=== PATIENT | male | born 1990 | race Caucasian/White ===

== ENCOUNTER 2021-04-08 12:30 | Emergency (ER) | payer SELFPAY ==
[~2021-04-08] VITALS: Ht 165.1 cm; Wt 73.9 kg
[2021-04-08 12:31] VITALS: BP 130/90
--- NOTE | 2021-04-08 12:40 | NUR ---
Pt ambulated to bed 4.
--- NOTE | 2021-04-08 12:46 | NUR ---
30 Y/O MALE C/O DISCOMFORT TO LEFT POSTERIOR THIGH X10 DAYS. PT STATES HE HAD THIS CYST FOR SEVERAL MONTHS BUT TODAY IS INCREASINGLY CAUSING DISCOMFORT WHILE WORKING OR APPLYING PRESSURE TO AREA. AREA IS RED, EDEMATOUS, WARM TO TOUCH, NO NOTED DISCHARGE. DENIES PAIN. DENIES TRAUMA OR INJURY TO AREA. NO MEDS APPLIED OR TAKEN. DENIES PMH NKA
--- NOTE | 2021-04-08 12:58 | NUR ---
TYSHAWN JACK AT PT BEDSIDE FOR FURTHER EVALUATION.
[2021-04-08] MEDS ORDERED: IBUP-2213 PO (13:12)
[2021-04-08 13:19] VITALS: BP 122/85
--- NOTE | 2021-04-08 13:20 | NUR ---
Patient discharged with v/s stable. Written and verbal after care instructions given LIPOMA Band explained. Patient alert, oriented and verbalized understanding of instructions. Ambulatory with steady gait. All questions addressed prior to discharge. ID band removed. Patient advised to follow up with PMD. Rx of IBUPROFE 600MG PO Q6H PRN PAIN given. Patient educated on indication of medication including possible reaction and side effects. Opportunity to ask questions provided and answered.
== END 2021-04-08 13:20 | disposition home or self-care (01) ==
LOC: MED 12:30 → EDSEX 12:30 → MED 13:20
DX: D17.24 Benign lipomatous neoplasm of skin and subcutaneous tissue of left leg (principal); Z79.899 Other long term (current) drug therapy
CPT/HCPCS: 99282